=== PATIENT | female | born 1970 | race Caucasian/White ===

== ENCOUNTER 2016-03-10 18:12 | Emergency (ER) | payer OTHER ==
--- NOTE | 2016-03-10 20:38 | ED ORDER SUMMARY ---
..... Patient: JAN PRESTON OrderSheet [facility] VisitID: [id number] [place] [address] 45y, F Registration Date/Time: 03/10/2016 ORDER SHEET Weight: 70.3 kg (stated) Allergies: Codiene, Erythromycin, PCN, Vicodin, Xopenex GENERAL ORDERS: Chest 2V Urgent (19:25 03/10/2016 Caroline Calderon) (19:42 [facility] Photo Cartographer) MEDICATION ORDERS: DuoNeb Neb Tx 1 unit dose (NOW) (19:03/10/2016 Caroline Calderon) (Ack 19:48 [facility] Photo Cartographer) (20:15 Singh R.N.) Levofloxacin PO 500 mg (NOW) (19:25 03/10/2016 Caroline Calderon) (20:15 Singh R.N.) Prednisone PO 40 mg (NOW) (19:26 03/10/2016 Caroline Calderon) (20:15 Singh R.N.) IV FLUIDS: ORDER SHEET NOTES: [Electronically signed by Damion Tran R.N. (21:04 03/10/2016)] [Electronically signed by Noel Aranda Dr. (22:45 03/11/2016)] [Electronically locked/signed by Damion Tran R.N. (21:04 03/10/2016)]
--- NOTE | 2016-03-10 20:38 | ED CLINICAL REPORT ---
Clinical Report - Physicians/Mid Levels [facility] [address] [place] [address] 03/10/2016 18:17 Patient: JAN PRESTON Time Seen: 18:44; initial patient contact. Arrived- By private vehicle. Historian- patient. HISTORY OF PRESENT ILLNESS Chief Complaint: COUGH. This started about 2 days ago and is still present. It was gradual in onset. The illness is described as moderate. The patient has had sputum production, a cough, difficulty breathing, nasal congestion and a nasal discharge. No chest discomfort or pain, fever or chills. Additional history - No known contact with a sick individual. No recent travel. Similar symptoms previously: None. Recent medical care: Not recently seen/assessed. SOCIAL HISTORY Current every day smoker. Occasional alcohol use. History of drug use: marijuana. ADDITIONAL NOTES The nursing notes have been reviewed with agreement regarding the chief complaint, PMH and patient medications and allergies. PHYSICAL EXAM Vital Signs: 03/10/2016 18:42 BP: 140/94. HR: 79. RR: 16. O2 saturation: 99%. Temp: 98.4 F. Pain level now: 8/10. Have been reviewed. Hypertensive. Heart rate normal. Respiratory rate normal. Temperature normal. Oxygen saturation normal. Appearance: Alert. No acute distress. Eyes: Eyes normal inspection. ENT: Pharynx normal. Neck: No JVD. CVS: Normal heart rate and rhythm. Heart sounds normal. Respiratory: Mild respiratory distress with accessory muscle use. Mildly prolonged expirations. Mildly decreased breath sounds diffusely over both lungs. Expiratory mild bilateral wheezes diffusely. No rales or rhonchi. Skin: Skin warm and dry. Normal skin color. No rash. Normal skin turgor. Extremities: No calf tenderness. No lower extremity edema. Neuro: Oriented X 3. LABS, X-RAYS, AND EKG Chest X-ray: No acute disease. Mild hyperinflation present on the right and left with flattening of the diaphragm and an increased AP diameter. Consistent with COPD. Normal lung markings present. Normal heart size. Mediastinum normal. Great vessels normal. No infiltrate. Views: PA and lateral. Technique: good. The X-rays were independently viewed by me and interpreted contemporaneously by me. A comparison with prior films reveals that the findings are unchanged. Interpretation time: 1999. PROGRESS AND PROCEDURES Course of Care: 03/10/2016 18:42 BP: 140/94. HR: 79. RR: 16. O2 saturation: 99%. Temp: 98.4 F. Pain level now: 8/10. Vital Signs: have been reviewed. Hypertensive. Heart rate normal. Respiratory rate normal. Temperature normal. Oxygen saturation normal. Disposition: Discharged home in good and improved condition. Condition: good. CLINICAL IMPRESSION Acute exacerbation of COPD. INSTRUCTIONS Do not smoke. Seek medical help to quit smoking. Your Current Medications: CONTINUE TAKING THE FOLLOWING MEDICATIONS: Cabergoline Oral : Tablet 0.5 mg, 1/2 tablet twice weekly. ClonazePAM Oral : 1 mg at bedtime. FentaNYL Transdermal : 25 mcg/hr every 72 hours. Gabapentin Oral : Tablet 800 mg, 4x a day. LaMICtal Oral : Tablet 100 mg, 2 tablets daily. Metoprolol Succinate Oral : 50 mg daily. QUEtiapine Fumarate Oral : 100 mg at bedtime. Vit D3*. Wellbutrin SR Oral : Tablet Extended Release 12 Hour 150 mg, 1 tablet twice daily. Prescription Medications: Levaquin 500 mg: take 1 tab orally every day for 4 days. No refills. Substitution is permissible. (Start on 03/11/16) Prednisone 20 mg: take 2 orally for 4 days. Dispense sufficient quantity. No refills. (Start on 03/11/16) Follow-up: Follow up with your doctor in about two days. Call for an appointment. Blood pressure screening was not performed during this visit because the patient has an active diagnosis of hypertension. The patient should follow up with a primary care provider for blood pressure management. (Electronically signed by Noel Aranda Dr. 03/11/2016 22:45)
--- NOTE | 2016-03-10 20:38 | ED ORDER SUMMARY ---
..... Patient: JAN PRESTON OrderSheet [facility] VisitID: [id number] [place] [address] 45y, F Registration Date/Time: 03/10/2016 ORDER SHEET Weight: 70.3 kg (stated) Allergies: Codiene, Erythromycin, PCN, Vicodin, Xopenex GENERAL ORDERS: Chest 2V Urgent (19:25 03/10/2016 Caroline Calderon) (19:42 [facility] Order Booker) MEDICATION ORDERS: DuoNeb Neb Tx 1 unit dose (NOW) (19:03/10/2016 Caroline Calderon) (Ack 19:48 [facility] Order Booker) (20:15 Singh R.N.) Levofloxacin PO 500 mg (NOW) (19:25 03/10/2016 Caroline Calderon) (20:15 Singh R.N.) Prednisone PO 40 mg (NOW) (19:26 03/10/2016 Caroline Calderon) (20:15 Singh R.N.) IV FLUIDS: ORDER SHEET NOTES: [Electronically signed by Damion Tran R.N. (21:04 03/10/2016)] [Electronically signed by Noel Aranda Dr. (22:45 03/11/2016)] [Electronically locked/signed by Damion Tran R.N. (21:04 03/10/2016)]
--- NOTE | 2016-03-10 20:38 | ED NURSING NOTES ---
Clinical Report - Nurses [facility] [address] [place] [address] 03/10/2016 18:17 Patient: JAN PRESTON TRIAGE Triage time 1842. Chief Complaint: "FLU", FEVER, COUGH and BODY ACHES. Alert. No acute distress. --18:47 Damion Tran R.N. 18:42 03/10/16. BP: 140/94. HR: 79. RR: 16. O2 saturation: 99%. Temp: 98.4 F (oral). Pain level now: 10/07. --18:47 Damion Tran R.N. Weight: 70.3 kg stated. Height/Length: 61 inches Per Patient. BMI: 29.3. --18:45 Damion Tran R.N. Medications Cabergoline Oral (Tablet 0.5 mg) 1/2 tablet, twice weekly. ClonazePAM Oral 1 mg, at bedtime. FentaNYL Transdermal 25 mcg/hr, every 72 hours. Gabapentin Oral (Tablet 800 mg), 4x a day. LaMICtal Oral (Tablet 100 mg) 2 tablets, daily. Metoprolol Succinate Oral 50 mg, daily. QUEtiapine Fumarate Oral 100 mg, at bedtime. Vit D3. Wellbutrin SR Oral (Tablet Extended Release 12 Hour 150 mg) 1 tablet, twice daily. --18:44 Damion Tran R.N. Allergies Codiene. Definite Moderate(itching, swelling) Erythromycin. Definite Moderate (makes body turn "red" and feel as though she is on fire.) --18:44 Damion Tran R.N. PCN. Definite Moderate(rash, swelling) Vicodin. Definite Moderate(itching) Xopenex. Definite Moderate ("shakes" and "rapid HR") --18:44 Damion Tran R.N. History Arrived by private vehicle. Historian: patient. Unaccompanied. This started yesterday. ( Patient presents to the ED with symptoms of cough, congestion, fever and body aches x2 days.). She has had chills, fatigue, sinus pain and a headache. 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 PAST MEDICAL HX: Last normal menstrual period- about 2 weeks ago. Denies current . SOCIAL HX: Light tobacco smoker (cigarette)- less than 1/2 a pack per day. Occasional alcohol use. History of drug use: marijuana. FALL RISK ASSESSMENT: Fall risk assessment completed. No fall risk identified. NUTRITIONAL RISK ASSESSMENT: The nutritional risk assessment revealed no deficiencies. FUNCTIONAL ASSESSMENT: Functional assessment: no impairments noted. LEARNING NEEDS ASSESSMENT: The learning needs assessment revealed no barriers. SKIN INTEGRITY ASSESSMENT: Skin integrity risk assessment completed. No skin integrity risk identified. --18:47 Damion Tran R.N. PROBLEMS: Endometriosis. Neck Pain. Microadenoma. Substance Abuse. Dizziness. Abnormal Liver Function Test. Leukocytosis. Pancreatitis. Urinary Retention. Anxiety Reaction. Headache. UTI - Urinary Tract Infection. Back Pain. Anemia. Hypertension. Chest Wall Pain. Bronchitis. Myofascial Strain. --18:46 Dmaion Tran R.N. ADDITIONAL SURGERIES: Appendectomy. Breast Biopsy. Carpal Tunnel Surgery. . Laparoscopy. Tubal Ligation. --18:46 Damion Tran R.N. PHYSICAL ASSESSMENT Ambulatory to room. GENERAL / NEURO / PSYCH: Alert. Oriented X 4. Appears in no acute distress. HEENT: Pupils equal, round and reactive to light. Mucous membranes are pink. RESPIRATORY: Mild respiratory distress. Cough productive of moderate amounts of thick sputum. CVS: Normal sinus rhythm noted. Capillary refill less than 2 seconds. Pulses within normal limits. GI / : Abdomen soft and nontender and normal bowel sounds. SKIN: Skin intact. Skin is warm and dry. Normal skin turgor. --18:48 Damion Tran R.N. NURSING PROGRESS NOTES Call light placed in reach. Side rails up x 1. Bed placed in lowest position. Brakes of bed on. --18:48 Damion Tran R.N. 20:15 03/10/2016 Duoneb (Ipratropium-Albuterol) Neb TX 1 unit dose given. Given by the respiratory therapist. Allergies verified and confirmed 5 rights. --20:15 Damion Tran R.N. 20:15 03/10/2016 Levofloxacin PO 500 mg given. Allergies verified and confirmed 5 rights. --20:15 Damion Tran R.N. 20:15 03/10/2016 Prednisone PO Tablets 40 mg given. Allergies verified and confirmed 5 rights. --20:15 Damion Tran R.N. DISPOSITION / DISCHARGE No learning barriers present. Discharge instructions provided and reviewed with the patient. Reviewed medication(s) side effects, precautions, dosing and course information. Written instructions provided in Malian. The patient was discharged home and accompanied by spouse. She left the Emergency Department ambulatory and via private vehicle. Spouse driving. --21:01 Damion Tran R.N. 20:51 03/10/16. BP: 140/110. HR: 82. RR: 16. O2 saturation: 100% on room air. Temp: 98.1 F. --21:01 Damion Tran R.N. Departure time: 2100 PM. --21:01 Damion Tran R.N. Locked/Released at 03/10/2016 21:04 by Damion Tran R.N.
--- NOTE | 2016-03-10 20:38 | ED NURSING NOTES ---
Clinical Report - Nurses [facility] [address] [place] [address] 03/10/2016 18:17 Patient: JAN PRESTON TRIAGE Triage time 1842. Chief Complaint: "FLU", FEVER, COUGH and BODY ACHES. Alert. No acute distress. --18:47 Damion Tran R.N. 18:42 03/10/16. BP: 140/94. HR: 79. RR: 16. O2 saturation: 99%. Temp: 98.4 F (oral). Pain level now: 10/07. --18:47 Damion Tran R.N. Weight: 70.3 kg stated. Height/Length: 61 inches Per Patient. BMI: 29.3. --18:45 Damion Tran R.N. Medications Cabergoline Oral (Tablet 0.5 mg) 1/2 tablet, twice weekly. ClonazePAM Oral 1 mg, at bedtime. FentaNYL Transdermal 25 mcg/hr, every 72 hours. Gabapentin Oral (Tablet 800 mg), 4x a day. LaMICtal Oral (Tablet 100 mg) 2 tablets, daily. Metoprolol Succinate Oral 50 mg, daily. QUEtiapine Fumarate Oral 100 mg, at bedtime. Vit D3. Wellbutrin SR Oral (Tablet Extended Release 12 Hour 150 mg) 1 tablet, twice daily. --18:44 Damion Tran R.N. Allergies Codiene. Definite Moderate(itching, swelling) Erythromycin. Definite Moderate (makes body turn "red" and feel as though she is on fire.) --18:44 Damion Tran R.N. PCN. Definite Moderate(rash, swelling) Vicodin. Definite Moderate(itching) Xopenex. Definite Moderate ("shakes" and "rapid HR") --18:44 Damion Tran R.N. History Arrived by private vehicle. Historian: patient. Unaccompanied. This started yesterday. ( Patient presents to the ED with symptoms of cough, congestion, fever and body aches x2 days.). She has had chills, fatigue, sinus pain and a headache. 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 PAST MEDICAL HX: Last normal menstrual period- about 2 weeks ago. Denies current . SOCIAL HX: Light tobacco smoker (cigarette)- less than 1/2 a pack per day. Occasional alcohol use. History of drug use: marijuana. FALL RISK ASSESSMENT: Fall risk assessment completed. No fall risk identified. NUTRITIONAL RISK ASSESSMENT: The nutritional risk assessment revealed no deficiencies. FUNCTIONAL ASSESSMENT: Functional assessment: no impairments noted. LEARNING NEEDS ASSESSMENT: The learning needs assessment revealed no barriers. SKIN INTEGRITY ASSESSMENT: Skin integrity risk assessment completed. No skin integrity risk identified. --18:47 Damion Tran R.N. PROBLEMS: Endometriosis. Neck Pain. Microadenoma. Substance Abuse. Dizziness. Abnormal Liver Function Test. Leukocytosis. Pancreatitis. Urinary Retention. Anxiety Reaction. Headache. UTI - Urinary Tract Infection. Back Pain. Anemia. Hypertension. Chest Wall Pain. Bronchitis. Myofascial Strain. --18:46 Damion Tran R.N. ADDITIONAL SURGERIES: Appendectomy. Breast Biopsy. Carpal Tunnel Surgery. . Laparoscopy. Tubal Ligation. --18:46 Damion Tran R.N. PHYSICAL ASSESSMENT Ambulatory to room. GENERAL / NEURO / PSYCH: Alert. Oriented X 4. Appears in no acute distress. HEENT: Pupils equal, round and reactive to light. Mucous membranes are pink. RESPIRATORY: Mild respiratory distress. Cough productive of moderate amounts of thick sputum. CVS: Normal sinus rhythm noted. Capillary refill less than 2 seconds. Pulses within normal limits. GI / : Abdomen soft and nontender and normal bowel sounds. SKIN: Skin intact. Skin is warm and dry. Normal skin turgor. --18:48 Damion Tran R.N. NURSING PROGRESS NOTES Call light placed in reach. Side rails up x 1. Bed placed in lowest position. Brakes of bed on. --18:48 Damion Tran R.N. 20:15 03/10/2016 Duoneb (Ipratropium-Albuterol) Neb TX 1 unit dose given. Given by the respiratory therapist. Allergies verified and confirmed 5 rights. --20:15 Damion Tran R.N. 20:15 03/10/2016 Levofloxacin PO 500 mg given. Allergies verified and confirmed 5 rights. --20:15 Damion Tran R.N. 20:15 03/10/2016 Prednisone PO Tablets 40 mg given. Allergies verified and confirmed 5 rights. --20:15 Damion Tran R.N. DISPOSITION / DISCHARGE No learning barriers present. Discharge instructions provided and reviewed with the patient. Reviewed medication(s) side effects, precautions, dosing and course information. Written instructions provided in Andorran. The patient was discharged home and accompanied by spouse. She left the Emergency Department ambulatory and via private vehicle. Spouse driving. --21:01 Damion Tran R.N. 20:51 03/10/16. BP: 140/110. HR: 82. RR: 16. O2 saturation: 100% on room air. Temp: 98.1 F. --21:01 Damion Tran R.N. Departure time: 2100 PM. --21:01 Damion Tran R.N. Locked/Released at 03/10/2016 21:04 by Damion Tran R.N.
--- NOTE | 2016-03-10 21:03 | DIAGNOSTIC IMAGING REPORT ---
PROCEDURE: XR CHEST 2 VIEW INDICATION: COUGH TECHNIQUE: PA and lateral views. COMPARISON: The chest x-ray on 11/18/2015. FINDINGS: Lungs are clear. Heart and mediastinum are normal. Thorax is normal. IMPRESSION: 1. Negative chest.
--- NOTE | 2016-03-11 22:45 | ED MAR SUMMARY ---
..... Medication Administration Record [facility] [address] [place] [address] Patient: JAN PRESTON Visit ID: [id number] 45y, F Weight: 70.3 kg Height/Length: 61 in BMI: 29.3 ALLERGIES: Codiene, Erythromycin, PCN, Vicodin, Xopenex Given 20:03/10/2016 Damion Tran RLucasNLucas Medication Administered: DUONEB [NEB TX] (IPRATROPIUM-ALBUTEROL), Dose: 1 unit dose Neb TX. Medication Ordered: DuoNeb Neb Tx 1 unit dose (NOW). Given 20:03/10/2016 Damion Tran RLucasNLucas Medication Administered: LEVOFLOXACIN [PO], Dose: 500 mg PO. Medication Ordered: Levofloxacin PO 500 mg (NOW). Given 20:03/10/2016 Damion Tran, RLucasNLucas Medication Administered: PREDNISONE [PO], Dose: 40 mg Tablets PO. Medication Ordered: Prednisone PO 40 mg (NOW).
--- NOTE | 2016-03-11 22:45 | ED MED RECONCILIATION SUMMARY ---
Patient: JAN PRESTON Medication Reconciliation Report [facility] VisitID: [id number] [place] [address] 45y, F Registration Date/Time: 03/10/2016 Weight: 70.3 kg Height/Length: 61 in. BMI: 29.3 ALLERGIES: Codiene, Erythromycin, PCN, Vicodin, Xopenex The patient's Home Medications are listed below: CONTINUE TAKING THE FOLLOWING MEDICATIONS: Cabergoline Oral (0.5 mg) 1/2 tablet, twice weekly ClonazePAM Oral 1 mg, at bedtime FentaNYL Transdermal 25 mcg/hr, every 72 hours Gabapentin Oral (800 mg), 4x a day LaMICtal Oral (100 mg) 2 tablets, daily Metoprolol Succinate Oral 50 mg, daily QUEtiapine Fumarate Oral 100 mg, at bedtime Vit D3 Wellbutrin SR Oral (150 mg) 1 tablet, twice daily The source(s) of the original Home Medication information: Not obtained. The following Medications were given to the patient in the Emergency Department: Duoneb [Neb Tx] Neb TX 1 unit dose, administered: 03/10/2016 8:15:00 PM Levofloxacin [PO] PO 500 mg, administered: 03/10/2016 8:15:00 PM Prednisone [PO] PO 40 mg, administered: 03/10/2016 8:15:00 PM The following Medications were prescribed to the patient: Levaquin 500 mg: take 1 tab orally every day for 4 days. No refills. Substitution is permissible.(Start on 03/11/16) -- Noel Aranda Dr. Prednisone 20 mg: take 2 orally for 4 days. Dispense sufficient quantity. No refills.(Start on 03/11/16) -- Noel Aranda Dr.
--- NOTE | 2016-03-11 22:45 | ED DISCHARGE INSTRUCTIONS ---
Patient: JAN PRESTON General Instructions [facility] VisitID: [id number] [place] [address] 45y, F Registration Date/Time: 03/10/2016 Acute exacerbation of COPD. INSTRUCTIONS Do not smoke. Seek medical help to quit smoking. Your Current Medications: CONTINUE TAKING THE FOLLOWING MEDICATIONS: Cabergoline Oral : Tablet 0.5 mg, 1/2 tablet twice weekly. ClonazePAM Oral : 1 mg at bedtime. FentaNYL Transdermal : 25 mcg/hr every 72 hours. Gabapentin Oral : Tablet 800 mg, 4x a day. LaMICtal Oral : Tablet 100 mg, 2 tablets daily. Metoprolol Succinate Oral : 50 mg daily. QUEtiapine Fumarate Oral : 100 mg at bedtime. Vit D3*. Wellbutrin SR Oral : Tablet Extended Release 12 Hour 150 mg, 1 tablet twice daily. Prescription Medications: Levaquin 500 mg: take 1 tab orally every day for 4 days. No refills. Substitution is permissible. (Start on 03/11/16) Prednisone 20 mg: take 2 orally for 4 days. Dispense sufficient quantity. No refills. (Start on 03/11/16) Follow-up: Follow up with your doctor in about two days. Call for an appointment. Blood pressure screening was not performed during this visit because the patient has an active diagnosis of hypertension. The patient should follow up with a primary care provider for blood pressure management. ADDITIONAL INFORMATION COPD Flare Both emphysema and chronic bronchitis are forms of chronic obstructive pulmonary disease (COPD). It is most often caused by many years of smoking tobacco. Many things can make your lung disease suddenly get worse. These causes include the common cold, pneumonia, acute bronchitis, missing doses of your regular breathing medicines, or being around smoke, dust, or other air pollutants. A COPD flare may last 7 to 14 days. Your doctor may prescribe medicineto relax your airways and prevent wheezing. Your doctor may also prescribe antibiotics if he or she thinks you havea bacterial infection. Prednisone can helpease inflammation in a severe attack. Home care Here are things you can do at home: Drink lots of water or other fluids (at least 10 glasses a day) during an attack. This will loosen lung secretions and make it easier to breathe. If you have heart or kidney disease, check with your doctor before you drink extra amounts of fluids. Take prescribed medicine exactly at the times advised. If you have a hand-held inhaler or aerosol breathing medicine, don't use it more than once every 4 hours, unless your doctor tells you to. If you were givenan antibiotic or prednisone, take all of the medicine even if you are feeling better after a few days. Don't smoke. Avoid being aroundthe smoke of others. If you were given an inhaler, use it exactly as directed. If you need to use it more often than prescribed, your condition may be getting worse. Call your doctor. Follow-up care Follow up with your health care provider.If you are 65 or older or have chronic asthma or COPD, you should get a single dose of the pneumococcal vaccine and aflu shot each year. You may need a second dose of the pneumococcal vaccine if you had the first dose at a younger age. Your health care provider will let you know if you need a second dose. For all other people, the usual dose for the pneumococcal vaccine is 1 or 2 shots. Yourprovider can discuss this with you. When to seek medical care Get prompt medical attention ifany of these occur: Increased wheezing or shortness of breath Need to use your inhalers more often than usual without relief Fever of 100.4F(38C) or higher, or as directed by your health care provider Coughing up lots of dark-colored or bloody sputum (mucus) Chest pain with each breath You do not start to improve within 24 hours How To Quit Smoking Smoking is one of the hardest habits to break. About half of all those who have ever smoked have been able to quit, and most of those (about 70%) who still smoke want to quit. Here are some of the best ways to stop smoking. Keep Trying: It takes most smokers about 8 tries before they are finally able to fully quit. So, the more often you try and fail, the better your chance of quitting the next time! So, don't give up! Go Cold Morrice: Most ex-smokers quit cold turkey. Trying to cut back gradually doesn't seem to work as well, perhaps because it continues the smoking habit. Also, it is possible to fool yourself by inhaling more while smoking fewer cigarettes. This results in the same amount of nicotine in your body! Get Support: Support programs can make an important difference, especially for the heavy smoker. These groups offer lectures, methods to change your behavior and peer support. Call the free national Quitline for more information. 468-VKSM-SYJ (333-286-7327). Low-cost or free programs are offered by many hospitals, local chapters of the [place] [employer] (490-337-6088) and the [place] [employer] (734-510-0219). Support at home is important too. Non-smokers can help by offering praise and encouragement. If the smoker fails to quit, encourage them to try again! Kfsh-Wse-Vdwzjvr Medicines: For those who can't quit on their own, Nicotine Replacement Therapy (NRT) may make quitting much easier. Certain aids such as the nicotine patch, gum and lozenge are available without a prescription. However, it is best to use these under the guidance of your doctor. The skin patch provides a steady supply of nicotine to the body. Nicotine gum and lozenge gives temporary bursts of low levels of nicotine. Both methods take the edge off the craving for cigarettes. WARNING: If you feel symptoms of nicotine overdose, such as nausea, vomiting, dizziness, weakness, or fast heartbeat, stop using these and see your doctor. Prescription Medicines: After evaluating your smoking patterns and prior attempts at quitting, your doctor may offer a prescription medicine such as bupropion (Zyban, Wellbutrin), varenicline (Chantix, Champix), a niocotine inhaler or nasal spray. Each has its unique advantage and side effects which your doctor can review with you. Health Benefits Of Quitting: The benefits of quitting start right away and keep improving the longer you go without smokin minutes: blood pressure and pulse return to normal 8 hours: oxygen levels return to normal 2 days: ability to smell and taste begins to improve as damaged nerves start to regrow 2-3 weeks: circulation and lung function improves 1-9 months: decreased cough, congestion and shortness of breath; less tired 1 year: risk of heart attack decreases by half 5 years: risk of lung cancer decreases by half; risk of stroke becomes the same as a non-smoker For information about how to quit smoking, visit the following links: National [employer] , Clearing the Air, Quit Smoking Today - an online booklet. http://www.smokefree.gov/pubs/clearing_the_air.pdf Smokefree.gov http://smokefree.gov/ QuitNet http://www.quitnet.com/ Levofloxacin Oral tablet What is this medicine? LEVOFLOXACIN (lindsay talley FIFI mesfin lindsey) is a quinolone antibiotic. It is used to treat certain kinds of bacterial infections. It will not work for colds, flu, or other viral infections. How should I use this medicine? Take this medicine by mouth with a full glass of water. Follow the directions on the prescription label. This medicine can be taken with or without food. Take your medicine at regular intervals. Do not take your medicine more often than directed. Do not skip doses or stop your medicine early even if you feel better. Do not stop taking except on your doctor's advice. A special MedGuide will be given to you by the pharmacist with each prescription and refill. Be sure to read this information carefully each time. Talk to your phlebotomy services representative regarding the use of this medicine in children. While this drug may be prescribed for children as young as 6 months for selected conditions, precautions do apply. What side effects may I notice from receiving this medicine? Side effects that you should report to your doctor or health care director as soon as possible: -allergic reactions like skin rash or hives, swelling of the face, lips, or tongue -changes in vision -confusion, nightmares or hallucinations -difficulty breathing -irregular heartbeat, chest pain -joint, muscle or tendon pain -pain or difficulty passing urine -persistent headache with or without blurred vision -redness, blistering, peeling or loosening of the skin, including inside the mouth -seizures -unusual pain, numbness, tingling, or weakness -vaginal irritation, discharge Side effects that usually do not require medical attention (report to your doctor or health care director if they continue or are bothersome): -diarrhea -dry mouth -headache -stomach upset, nausea -trouble sleeping What may interact with this medicine? Do not take this medicine with any of the following medications: - arsenic trioxide - chloroquine - droperidol - medicines for irregular heart rhythm like amiodarone, disopyramide, dofetilide, flecainide, quinidine, procainamide, sotalol - some medicines for depression or mental problems like phenothiazines, pimozide, and ziprasidone This medicine may also interact with the following medications: - amoxapine -antacids - cisapride - dairy products - didanosine (ddI) buffered tablets or powder - haloperidol - multivitamins -NSAIDS, medicines for pain and inflammation, like ibuprofen or naproxen - retinoid products like tretinoin or isotretinoin - risperidone - some other antibiotics like clarithromycin or erythromycin - sucralfate - theophylline - warfarin What if I miss a dose? If you miss a dose, take it as soon as you remember. If it is almost time for your next dose, take only that dose. Do not take double or extra doses. Where should I keep my medicine? Keep out of the reach of children. Store at room temperature between 15 and 30 degrees C (59 and 86 degrees F). Keep in a tightly closed container. Throw away any unused medicine after the expiration date. What should I tell my health care provider before I take this medicine? They need to know if you have any of these conditions: cerebral disease irregular heartbeat kidney disease seizure disorder an unusual or allergic reaction to levofloxacin, other antibiotics or medicines, foods, dyes, or preservatives or trying to get breast-feeding What should I watch for while using this medicine? Tell your doctor or health care director if your symptoms do not improve or if they get worse. Drink several glasses of water a day and cut down on drinks that contain caffeine. You must not get dehydrated while taking this medicine. You may get drowsy or dizzy. Do not drive, use machinery, or do anything that needs mental alertness until you know how this medicine affects you. Do not sit or stand up quickly, especially if you are an older patient. This reduces the risk of dizzy or fainting spells. This medicine can make you more sensitive to the sun. Keep out of the sun. If you cannot avoid being in the sun, wear protective clothing and use a sunscreen. Do not use sun lamps or tanning beds/booths. Contact your doctor if you get a sunburn. If you are a diabetic monitor your blood glucose carefully. If you get an unusual reading stop taking this medicine and call your doctor right away. Do not treat diarrhea with ryfv-ann-dcucqur products. Contact your doctor if you have diarrhea that lasts more than 2 days or if the diarrhea is severe and watery. Avoid antacids, calcium, iron, and zinc products for 2 hours before and 2 hours after taking a dose of this medicine. Prednisone Oral tablet What is this medicine? PREDNISONE (PRED ni sone) is a corticosteroid. It is commonly used to treat inflammation of the skin, joints, lungs, and other organs. Common conditions treated include asthma, allergies, and arthritis. It is also used for other conditions, such as blood disorders and diseases of the adrenal glands. How should I use this medicine? Take this medicine by mouth with a glass of water. Follow the directions on the prescription label. Take this medicine with food. If you are taking this medicine once a day, take it in the morning. Do not take more medicine than you are told to take. Do not suddenly stop taking your medicine because you may develop a severe reaction. Your doctor will tell you how much medicine to take. If your doctor wants you to stop the medicine, the dose may be slowly lowered over time to avoid any side effects. Talk to your phlebotomy services representative regarding the use of this medicine in children. Special care may be needed. What side effects may I notice from receiving this medicine? Side effects that you should report to your doctor or health care director as soon as possible: allergic reactions like skin rash, itching or hives, swelling of the face, lips, or tongue changes in emotions or moods changes in vision depressed mood eye pain fever or chills, cough, sore throat, pain or difficulty passing urine increased thirst swelling of ankles, feet Side effects that usually do not require medical attention (report to your doctor or health care director if they continue or are bothersome): confusion, excitement, restlessness headache nausea, vomiting skin problems, acne, thin and shiny skin trouble sleeping weight gain What may interact with this medicine? Do not take this medicine with any of the following medications: metyrapone mifepristone This medicine may also interact with the following medications: aminoglutethimide amphotericin B aspirin and aspirin-like medicines barbiturates certain medicines for diabetes, like glipizide or glyburide cholestyramine cholinesterase inhibitors cyclosporine digoxin diuretics ephedrine female hormones, like estrogens and control pills isoniazid ketoconazole NSAIDS, medicines for pain and inflammation, like ibuprofen or naproxen phenytoin rifampin toxoids vaccines warfarin What if I miss a dose? If you miss a dose, take it as soon as you can. If it is almost time for your next dose, talk to your doctor or health care director. You may need to miss a dose or take an extra dose. Do not take double or extra doses without advice. Where should I keep my medicine? Keep out of the reach of children. Store at room temperature between 15 and 30 degrees C (59 and 86 degrees F). Protect from light. Keep container tightly closed. Throw away any unused medicine after the expiration date. What should I tell my health care provider before I take this medicine? They need to know if you have any of these conditions: [place]'s syndrome diabetes glaucoma heart disease high blood pressure infection (especially a virus infection such as chickenpox, cold sores, or herpes) kidney disease liver disease mental illness myasthenia gravis osteoporosis seizures stomach or intestine problems thyroid disease an unusual or allergic reaction to lactose, prednisone, other medicines, foods, dyes, or preservatives or trying to get breast-feeding What should I watch for while using this medicine? Visit your doctor or health care director for regular checks on your progress. If you are taking this medicine over a prolonged period, carry an identification card with your name and address, the type and dose of your medicine, and your doctor's name and address. This medicine may increase your risk of getting an infection. Tell your doctor or health care director if you are around anyone with measles or chickenpox, or if you develop sores or blisters that do not heal properly. If you are going to have surgery, tell your doctor or health care director that you have taken this medicine within the last twelve months. Ask your doctor or health care director about your diet. You may need to lower the amount of salt you eat. This medicine may affect blood sugar levels. If you have diabetes, check with your doctor or health care director before you change your diet or the dose of your diabetic medicine. You have been given the following additional information: COPD Flare Smoking Cessation Levofloxacin Oral tablet Prednisone Oral tablet (Electronically signed by Noel Aranda Dr. 03/11/2016 22:45)
--- NOTE | 2016-03-11 22:45 | ED MAR SUMMARY ---
..... Medication Administration Record [facility] [address] [place] [address] Patient: JAN PRESTON Visit ID: [id number] 45y, F Weight: 70.3 kg Height/Length: 61 in BMI: 29.3 ALLERGIES: Codiene, Erythromycin, PCN, Vicodin, Xopenex Given 20:03/10/2016 Damion Tran RLucasNLucas Medication Administered: DUONEB [NEB TX] (IPRATROPIUM-ALBUTEROL), Dose: 1 unit dose Neb TX. Medication Ordered: DuoNeb Neb Tx 1 unit dose (NOW). Given 20:03/10/2016 Damion Tran RLucasNLucas Medication Administered: LEVOFLOXACIN [PO], Dose: 500 mg PO. Medication Ordered: Levofloxacin PO 500 mg (NOW). Given 20:03/10/2016 Damion Tran, RLucasNLucas Medication Administered: PREDNISONE [PO], Dose: 40 mg Tablets PO. Medication Ordered: Prednisone PO 40 mg (NOW).
--- NOTE | 2016-03-11 22:45 | ED DISCHARGE INSTRUCTIONS ---
Patient: JAN PRESTON General Instructions [facility] VisitID: [id number] [place] [address] 45y, F Registration Date/Time: 03/10/2016 Acute exacerbation of COPD. INSTRUCTIONS Do not smoke. Seek medical help to quit smoking. Your Current Medications: CONTINUE TAKING THE FOLLOWING MEDICATIONS: Cabergoline Oral : Tablet 0.5 mg, 1/2 tablet twice weekly. ClonazePAM Oral : 1 mg at bedtime. FentaNYL Transdermal : 25 mcg/hr every 72 hours. Gabapentin Oral : Tablet 800 mg, 4x a day. LaMICtal Oral : Tablet 100 mg, 2 tablets daily. Metoprolol Succinate Oral : 50 mg daily. QUEtiapine Fumarate Oral : 100 mg at bedtime. Vit D3*. Wellbutrin SR Oral : Tablet Extended Release 12 Hour 150 mg, 1 tablet twice daily. Prescription Medications: Levaquin 500 mg: take 1 tab orally every day for 4 days. No refills. Substitution is permissible. (Start on 03/11/16) Prednisone 20 mg: take 2 orally for 4 days. Dispense sufficient quantity. No refills. (Start on 03/11/16) Follow-up: Follow up with your doctor in about two days. Call for an appointment. Blood pressure screening was not performed during this visit because the patient has an active diagnosis of hypertension. The patient should follow up with a primary care provider for blood pressure management. ADDITIONAL INFORMATION COPD Flare Both emphysema and chronic bronchitis are forms of chronic obstructive pulmonary disease (COPD). It is most often caused by many years of smoking tobacco. Many things can make your lung disease suddenly get worse. These causes include the common cold, pneumonia, acute bronchitis, missing doses of your regular breathing medicines, or being around smoke, dust, or other air pollutants. A COPD flare may last 7 to 14 days. Your doctor may prescribe medicineto relax your airways and prevent wheezing. Your doctor may also prescribe antibiotics if he or she thinks you havea bacterial infection. Prednisone can helpease inflammation in a severe attack. Home care Here are things you can do at home: Drink lots of water or other fluids (at least 10 glasses a day) during an attack. This will loosen lung secretions and make it easier to breathe. If you have heart or kidney disease, check with your doctor before you drink extra amounts of fluids. Take prescribed medicine exactly at the times advised. If you have a hand-held inhaler or aerosol breathing medicine, don't use it more than once every 4 hours, unless your doctor tells you to. If you were givenan antibiotic or prednisone, take all of the medicine even if you are feeling better after a few days. Don't smoke. Avoid being aroundthe smoke of others. If you were given an inhaler, use it exactly as directed. If you need to use it more often than prescribed, your condition may be getting worse. Call your doctor. Follow-up care Follow up with your health care provider.If you are 65 or older or have chronic asthma or COPD, you should get a single dose of the pneumococcal vaccine and aflu shot each year. You may need a second dose of the pneumococcal vaccine if you had the first dose at a younger age. Your health care provider will let you know if you need a second dose. For all other people, the usual dose for the pneumococcal vaccine is 1 or 2 shots. Yourprovider can discuss this with you. When to seek medical care Get prompt medical attention ifany of these occur: Increased wheezing or shortness of breath Need to use your inhalers more often than usual without relief Fever of 100.4F(38C) or higher, or as directed by your health care provider Coughing up lots of dark-colored or bloody sputum (mucus) Chest pain with each breath You do not start to improve within 24 hours How To Quit Smoking Smoking is one of the hardest habits to break. About half of all those who have ever smoked have been able to quit, and most of those (about 70%) who still smoke want to quit. Here are some of the best ways to stop smoking. Keep Trying: It takes most smokers about 8 tries before they are finally able to fully quit. So, the more often you try and fail, the better your chance of quitting the next time! So, don't give up! Go Cold [place]: Most ex-smokers quit cold turkey. Trying to cut back gradually doesn't seem to work as well, perhaps because it continues the smoking habit. Also, it is possible to fool yourself by inhaling more while smoking fewer cigarettes. This results in the same amount of nicotine in your body! Get Support: Support programs can make an important difference, especially for the heavy smoker. These groups offer lectures, methods to change your behavior and peer support. Call the free national Quitline for more information. 038-ADTJ-MNS (432-097-7175). Low-cost or free programs are offered by many hospitals, local chapters of the [place] [employer] (747-488-5254) and the [place] [employer] (465-557-5764). Support at home is important too. Non-smokers can help by offering praise and encouragement. If the smoker fails to quit, encourage them to try again! Uxjs-Wcl-[id number] Medicines: For those who can't quit on their own, Nicotine Replacement Therapy (NRT) may make quitting much easier. Certain aids such as the nicotine patch, gum and lozenge are available without a prescription. However, it is best to use these under the guidance of your doctor. The skin patch provides a steady supply of nicotine to the body. Nicotine gum and lozenge gives temporary bursts of low levels of nicotine. Both methods take the edge off the craving for cigarettes. WARNING: If you feel symptoms of nicotine overdose, such as nausea, vomiting, dizziness, weakness, or fast heartbeat, stop using these and see your doctor. Prescription Medicines: After evaluating your smoking patterns and prior attempts at quitting, your doctor may offer a prescription medicine such as bupropion (Zyban, Wellbutrin), varenicline (Chantix, Champix), a niocotine inhaler or nasal spray. Each has its unique advantage and side effects which your doctor can review with you. Health Benefits Of Quitting: The benefits of quitting start right away and keep improving the longer you go without smokin minutes: blood pressure and pulse return to normal 8 hours: oxygen levels return to normal 2 days: ability to smell and taste begins to improve as damaged nerves start to regrow 2-3 weeks: circulation and lung function improves 1-9 months: decreased cough, congestion and shortness of breath; less tired 1 year: risk of heart attack decreases by half 5 years: risk of lung cancer decreases by half; risk of stroke becomes the same as a non-smoker For information about how to quit smoking, visit the following links: National [employer] , Clearing the Air, Quit Smoking Today - an online booklet. http://www.smokefree.gov/pubs/clearing_the_air.pdf Smokefree.gov http://smokefree.gov/ QuitNet http://www.quitnet.com/ Levofloxacin Oral tablet What is this medicine? LEVOFLOXACIN (lindsay talley FIFI mesfin lindsey) is a quinolone antibiotic. It is used to treat certain kinds of bacterial infections. It will not work for colds, flu, or other viral infections. How should I use this medicine? Take this medicine by mouth with a full glass of water. Follow the directions on the prescription label. This medicine can be taken with or without food. Take your medicine at regular intervals. Do not take your medicine more often than directed. Do not skip doses or stop your medicine early even if you feel better. Do not stop taking except on your doctor's advice. A special MedGuide will be given to you by the pharmacist with each prescription and refill. Be sure to read this information carefully each time. Talk to your electric stove mechanic regarding the use of this medicine in children. While this drug may be prescribed for children as young as 6 months for selected conditions, precautions do apply. What side effects may I notice from receiving this medicine? Side effects that you should report to your doctor or health director of managed care as soon as possible: -allergic reactions like skin rash or hives, swelling of the face, lips, or tongue -changes in vision -confusion, nightmares or hallucinations -difficulty breathing -irregular heartbeat, chest pain -joint, muscle or tendon pain -pain or difficulty passing urine -persistent headache with or without blurred vision -redness, blistering, peeling or loosening of the skin, including inside the mouth -seizures -unusual pain, numbness, tingling, or weakness -vaginal irritation, discharge Side effects that usually do not require medical attention (report to your doctor or health director of managed care if they continue or are bothersome): -diarrhea -dry mouth -headache -stomach upset, nausea -trouble sleeping What may interact with this medicine? Do not take this medicine with any of the following medications: - arsenic trioxide - chloroquine - droperidol - medicines for irregular heart rhythm like amiodarone, disopyramide, dofetilide, flecainide, quinidine, procainamide, sotalol - some medicines for depression or mental problems like phenothiazines, pimozide, and ziprasidone This medicine may also interact with the following medications: - amoxapine -antacids - cisapride - dairy products - didanosine (ddI) buffered tablets or powder - haloperidol - multivitamins -NSAIDS, medicines for pain and inflammation, like ibuprofen or naproxen - retinoid products like tretinoin or isotretinoin - risperidone - some other antibiotics like clarithromycin or erythromycin - sucralfate - theophylline - warfarin What if I miss a dose? If you miss a dose, take it as soon as you remember. If it is almost time for your next dose, take only that dose. Do not take double or extra doses. Where should I keep my medicine? Keep out of the reach of children. Store at room temperature between 15 and 30 degrees C (59 and 86 degrees F). Keep in a tightly closed container. Throw away any unused medicine after the expiration date. What should I tell my health care provider before I take this medicine? They need to know if you have any of these conditions: cerebral disease irregular heartbeat kidney disease seizure disorder an unusual or allergic reaction to levofloxacin, other antibiotics or medicines, foods, dyes, or preservatives or trying to get breast-feeding What should I watch for while using this medicine? Tell your doctor or health director of managed care if your symptoms do not improve or if they get worse. Drink several glasses of water a day and cut down on drinks that contain caffeine. You must not get dehydrated while taking this medicine. You may get drowsy or dizzy. Do not drive, use machinery, or do anything that needs mental alertness until you know how this medicine affects you. Do not sit or stand up quickly, especially if you are an older patient. This reduces the risk of dizzy or fainting spells. This medicine can make you more sensitive to the sun. Keep out of the sun. If you cannot avoid being in the sun, wear protective clothing and use a sunscreen. Do not use sun lamps or tanning beds/booths. Contact your doctor if you get a sunburn. If you are a diabetic monitor your blood glucose carefully. If you get an unusual reading stop taking this medicine and call your doctor right away. Do not treat diarrhea with xfuy-hcp-jjonwbr products. Contact your doctor if you have diarrhea that lasts more than 2 days or if the diarrhea is severe and watery. Avoid antacids, calcium, iron, and zinc products for 2 hours before and 2 hours after taking a dose of this medicine. Prednisone Oral tablet What is this medicine? PREDNISONE (PRED ni sone) is a corticosteroid. It is commonly used to treat inflammation of the skin, joints, lungs, and other organs. Common conditions treated include asthma, allergies, and arthritis. It is also used for other conditions, such as blood disorders and diseases of the adrenal glands. How should I use this medicine? Take this medicine by mouth with a glass of water. Follow the directions on the prescription label. Take this medicine with food. If you are taking this medicine once a day, take it in the morning. Do not take more medicine than you are told to take. Do not suddenly stop taking your medicine because you may develop a severe reaction. Your doctor will tell you how much medicine to take. If your doctor wants you to stop the medicine, the dose may be slowly lowered over time to avoid any side effects. Talk to your electric stove mechanic regarding the use of this medicine in children. Special care may be needed. What side effects may I notice from receiving this medicine? Side effects that you should report to your doctor or health director of managed care as soon as possible: allergic reactions like skin rash, itching or hives, swelling of the face, lips, or tongue changes in emotions or moods changes in vision depressed mood eye pain fever or chills, cough, sore throat, pain or difficulty passing urine increased thirst swelling of ankles, feet Side effects that usually do not require medical attention (report to your doctor or health director of managed care if they continue or are bothersome): confusion, excitement, restlessness headache nausea, vomiting skin problems, acne, thin and shiny skin trouble sleeping weight gain What may interact with this medicine? Do not take this medicine with any of the following medications: metyrapone mifepristone This medicine may also interact with the following medications: aminoglutethimide amphotericin B aspirin and aspirin-like medicines barbiturates certain medicines for diabetes, like glipizide or glyburide cholestyramine cholinesterase inhibitors cyclosporine digoxin diuretics ephedrine female hormones, like estrogens and control pills isoniazid ketoconazole NSAIDS, medicines for pain and inflammation, like ibuprofen or naproxen phenytoin rifampin toxoids vaccines warfarin What if I miss a dose? If you miss a dose, take it as soon as you can. If it is almost time for your next dose, talk to your doctor or health director of managed care. You may need to miss a dose or take an extra dose. Do not take double or extra doses without advice. Where should I keep my medicine? Keep out of the reach of children. Store at room temperature between 15 and 30 degrees C (59 and 86 degrees F). Protect from light. Keep container tightly closed. Throw away any unused medicine after the expiration date. What should I tell my health care provider before I take this medicine? They need to know if you have any of these conditions: Forsyth's syndrome diabetes glaucoma heart disease high blood pressure infection (especially a virus infection such as chickenpox, cold sores, or herpes) kidney disease liver disease mental illness myasthenia gravis osteoporosis seizures stomach or intestine problems thyroid disease an unusual or allergic reaction to lactose, prednisone, other medicines, foods, dyes, or preservatives or trying to get breast-feeding What should I watch for while using this medicine? Visit your doctor or health director of managed care for regular checks on your progress. If you are taking this medicine over a prolonged period, carry an identification card with your name and address, the type and dose of your medicine, and your doctor's name and address. This medicine may increase your risk of getting an infection. Tell your doctor or health director of managed care if you are around anyone with measles or chickenpox, or if you develop sores or blisters that do not heal properly. If you are going to have surgery, tell your doctor or health director of managed care that you have taken this medicine within the last twelve months. Ask your doctor or health director of managed care about your diet. You may need to lower the amount of salt you eat. This medicine may affect blood sugar levels. If you have diabetes, check with your doctor or health director of managed care before you change your diet or the dose of your diabetic medicine. You have been given the following additional information: COPD Flare Smoking Cessation Levofloxacin Oral tablet Prednisone Oral tablet (Electronically signed by Noel Aranda Dr. 03/11/2016 22:45)
--- NOTE | 2016-03-11 22:45 | ED MED RECONCILIATION SUMMARY ---
Patient: JAN PRESTON Medication Reconciliation Report [facility] VisitID: [id number] [place] [address] 45y, F Registration Date/Time: 03/10/2016 Weight: 70.3 kg Height/Length: 61 in. BMI: 29.3 ALLERGIES: Codiene, Erythromycin, PCN, Vicodin, Xopenex The patient's Home Medications are listed below: CONTINUE TAKING THE FOLLOWING MEDICATIONS: Cabergoline Oral (0.5 mg) 1/2 tablet, twice weekly ClonazePAM Oral 1 mg, at bedtime FentaNYL Transdermal 25 mcg/hr, every 72 hours Gabapentin Oral (800 mg), 4x a day LaMICtal Oral (100 mg) 2 tablets, daily Metoprolol Succinate Oral 50 mg, daily QUEtiapine Fumarate Oral 100 mg, at bedtime Vit D3 Wellbutrin SR Oral (150 mg) 1 tablet, twice daily The source(s) of the original Home Medication information: Not obtained. The following Medications were given to the patient in the Emergency Department: Duoneb [Neb Tx] Neb TX 1 unit dose, administered: 03/10/2016 8:15:00 PM Levofloxacin [PO] PO 500 mg, administered: 03/10/2016 8:15:00 PM Prednisone [PO] PO 40 mg, administered: 03/10/2016 8:15:00 PM The following Medications were prescribed to the patient: Levaquin 500 mg: take 1 tab orally every day for 4 days. No refills. Substitution is permissible.(Start on 03/11/16) -- Noel Aranda Dr. Prednisone 20 mg: take 2 orally for 4 days. Dispense sufficient quantity. No refills.(Start on 03/11/16) -- Noel Aranda Dr.
== END 2016-03-10 21:00 | disposition home or self-care (01) ==
LOC: ED SRH 18:12
DX: J44.1 Chronic obstructive pulmonary disease with (acute) exacerbation (principal); I10 Essential (primary) hypertension; Z79.899 Other long term (current) drug therapy; F17.210 Nicotine dependence, cigarettes, uncomplicated; Z88.0 Allergy status to penicillin; Z88.1 Allergy status to other antibiotic agents; Z88.5 Allergy status to narcotic agent; Z88.8 Allergy status to other drugs, medicaments and biological substances

== ENCOUNTER 2016-04-01 13:15 | Outpatient (CLI) | payer OTHER ==
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
== END 2016-04-01 23:00 ==
LOC: MRI SRH 13:15
DX: M47.812 Spondylosis without myelopathy or radiculopathy, cervical region (principal); M47.814 Spondylosis without myelopathy or radiculopathy, thoracic region; M50.322 Other cervical disc degeneration at C5-C6 level; M50.323 Other cervical disc degeneration at C6-C7 level

== ENCOUNTER 2016-05-22 13:00 | Outpatient (CLI) | payer OTHER ==
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
== END 2016-05-22 23:00 ==
LOC: XR SRH 13:00
DX: M47.812 Spondylosis without myelopathy or radiculopathy, cervical region (principal); M41.82 Other forms of scoliosis, cervical region